=== PATIENT | male | born 1985 | race American Indian/Alaskan Native ===

== ENCOUNTER 2018-12-12 00:34 | Emergency (ER) | payer OTHER ==
[2018-12-12] MEDS ORDERED: TYLENOL PO ONE (02:38)
[2018-12-12] MEDS ORDERED: IBUPROFEN PO ONE (02:38)
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
[2018-12-12 05:18] VITALS: BP 129/75
== END 2018-12-12 05:17 | disposition home or self-care (01) ==
LOC: ED 00:34
DX: M54.2 Cervicalgia (principal); M54.6 Pain in thoracic spine; G44.319 Acute post-traumatic headache, not intractable; Z79.899 Other long term (current) drug therapy; V89.2XXA Person injured in unspecified motor-vehicle accident, traffic, initial encounter; Y93.89 Activity, other specified; Y92.488 Other paved roadways as the place of occurrence of the external cause; Y99.8 Other external cause status
CPT/HCPCS: 70450; 72125; 72128; 99283